=== PATIENT | male | born 1990 ===

== ENCOUNTER 2017-01-28 05:39 | Emergency (ER) | payer SELFPAY ==
[2017-01-28 05:53] VITALS: BMI 33.1
[2017-01-28 05:55] VITALS: TEMP 98.3; O2SAT 99
--- NOTE | 2017-01-28 05:58 | ED PDOC ---
Arrival/HPI - General Time Seen by Provider: 01/28/17 05:55 - History of Present Illness Narrative History of Present Illness (Text): 01/28/17 05:55 Patient is a 26 y/o M presenting with 2 complaints. He is reporting significant anxiety that is causing him to not be able to sleep. He reports that he has not slept in 24 hours because he is so stressed out. He denies homicidal ideation or suicidal ideation. He denies PMD follow-up. He is also complaining of 2 month history of b/l lower back pain. He denies trauma. He reports that the pain is worse during times of stress. No recent weight loss. No weakness, numbness, tingling, bladder or bowel incontinence. Denies dysuria , hematuria, fever/chills, nausea/vomiting, chest pain or shortness of breath. Past Medical History - Infectious Disease Hx of Infectious Diseases: None - Psychiatric Hx Anxiety: Yes (on meds. doesn't know name) Hx Substance Use: No Family/Social History Family/Social History: No Known Family HX Smoking Status: Never Smoked Hx Alcohol Use: No Hx Substance Use: No Allergies/Home Meds Allergies/Adverse Reactions: Allergies No Known Allergies Allergy (Verified 10/24/16 03:50) Home Medications: Home Meds Medication Instructions Recorded Confirmed No Known Home Med 01/28/17 01/28/17 Review of Systems - Review of Systems Constitutional: absent: Fatigue, Weight Change, Fevers Eyes: absent: Vision Changes ENT: absent: Hearing Changes Respiratory: absent: SOB, Cough, Sputum, Wheezing Cardiovascular: absent: Chest Pain, Palpitations Gastrointestinal: absent: Abdominal Pain, Constipation, Diarrhea, Nausea, Vomiting Musculoskeletal: Back Pain Neurological: absent: Headache Psychiatric: Anxiety. absent: Depression, Suicidal Ideation Physical Exam Vital Signs Temp Pulse Resp BP Pulse Ox 01/28/17 05:55 98.3 F 69 17 148/94 H 99 Temperature: Afebrile Blood Pressure: Normal Pulse: Regular Respiratory Rate: Normal Appearance: Positive for: Well-Appearing, Non-Toxic, Comfortable Pain Distress: None Mental Status: Positive for: Alert and Oriented X 3 - Systems Exam Head: Present: Atraumatic, Normocephalic Pupils: Present: PERRL Extroacular Muscles: Present: EOMI Conjunctiva: Present: Normal Mouth: Present: Moist Mucous Membranes Neck: Present: Normal Range of Motion. No: MIDLINE TENDERNESS Respiratory/Chest: Present: Clear to Auscultation, Good Air Exchange. No: Respiratory Distress, Accessory Muscle Use Cardiovascular: Present: Regular Rate and Rhythm, Normal S1, S2. No: Murmurs Abdomen: No: Tenderness, Distention, Rebound, Guarding Back: Present: Normal Inspection. No: CVA Tenderness, Midline Tenderness, Paraspinal Tenderness Upper Extremity: Present: Normal Inspection Lower Extremity: Present: Normal Inspection Neurological: Present: GCS=15, CN II-XII Intact, Speech Normal, Gait Normal Psychiatric: Present: Alert, Oriented x 3 Medical Decision Making ED Course and Treatment: 01/28/17 06:00 Patient is presenting with significant anxiety and inability to sleep. Will consult psych for further evaluation. He is also complaining of atraumatic b/l lower back pain worse with stress x 2 months. No other symptoms. Will give anti-inflammatories and instruct patient to follow-up with PMD 01/28/17 07:[address] Perez to follow-up psych recommendations - Medication Orders Current Medication Orders: Discontinued Medications Ibuprofen (Motrin Tab) 600 mg PO STAT STA Stop: 01/28/17 06:03 Last Admin: 01/28/17 06:21 Dose: 600 mg Disposition/Present on Arrival - Present on Arrival Any Indicators Present on Arrival: No History of DVT/PE: No History of Uncontrolled Diabetes: No Urinary Catheter: No History Surgical Site Infection Following: None - Disposition Have Diagnosis and Disposition been Completed?: Yes Diagnosis: Anxiety Disposition Time: 07:00 Condition: GOOD
[2017-01-28 07:14] VITALS: BP 145/90; PULSE 66; RESP 18
== END 2017-01-28 07:15 | disposition home or self-care (01) ==
LOC: ED 05:39
DX: F41.9 Anxiety disorder, unspecified (principal)